=== PATIENT | female | born 1995 | race Caucasian/White ===

== ENCOUNTER 2017-12-04 11:33 | Emergency (ER) | payer OTHER ==
[~2017-12-04] VITALS: Ht 160 cm; Wt 62.0 kg
[2017-12-04 11:35] VITALS: BP 126/80; PULSE 76; RESP 14; TEMP 99; O2SAT 98
--- NOTE | 2017-12-04 12:22 | PD ---
HPI Chief Complaint: Head Injury Time Seen by Provider: 11:54 Travel History International Travel<30 days: No Contact w/Intl Traveler<30days: No Traveled to known affect area: No History of Present Illness HPI 22-year-old female that presents to the ED for evaluation of head injury on Monday. Per patient she fell on the lateral. She doesn't know what happened. She doesn't remember what happened during that time. Per patient he remembers what happened before and after. Unknown amount of LOC. Per patient this happened Monday. She's been doing well except yesterday she was very tired and for the most part slept through the day. She states that today she went to class and she noticed that she had blurry vision and she can barely see the letters on the screen. Per patient she has slight headache on the area which she hit her head. Denies any urinary or bowel movement issues. No chest pain or shortness of breath. No numbness, tingling, weakness. No blood thinner use. Other medical issues. No allergies to medication. Per patient the discomfort if anything is 3 out of 10. Otherwise she has no pain. PFSH Past Medical History Diminished Hearing: No Migraines: Yes Tetanus Vaccination: Unknown Influenza Vaccination: No ?: Not LMP: Approx. 1 month ago Social History Alcohol Use: Yes (occ) Tobacco Use: No Substance Use: No Allergies-Medications (Allergen,Severity, Reaction): Coded Allergies: No Known Allergies (Unverified , 08/20/15) Review of Systems Except as stated in HPI: all other systems reviewed are Neg Physical Exam Narrative GENERAL: SKIN: Warm and dry. HEAD: Atraumatic. Normocephalic. EYES: Pupils equal and round 4 mm reactive to light and accommodation. No scleral icterus. No injection or drainage. EOM intact bilaterally. Peripheral vision intact bilaterally. ENT: No nasal bleeding or discharge. Mucous membranes pink and moist. Tongue is midline. No uvula deviation. NECK: Trachea midline. No JVD. CARDIOVASCULAR: Regular rate and rhythm. No murmurs, S3, S4. RESPIRATORY: No accessory muscle use. Clear to auscultation. Breath sounds equal bilaterally. GASTROINTESTINAL: Abdomen soft, non-tender, nondistended. Hepatic and splenic margins not palpable. MUSCULOSKELETAL: Extremities without clubbing, cyanosis, or edema. No obvious deformities. Full range of motion of the upper and lower extremities bilaterally. 2+ pulses bilaterally. NEUROLOGICAL: Awake and alert. No obvious cranial nerve deficits. Motor grossly within normal limits. Five out of 5 muscle strength in the arms and legs. Normal speech. PSYCHIATRIC: Appropriate mood and affect; insight and judgment normal. Data Data Last Documented VS Vital Signs Date Time Temp Pulse Resp B/P (MAP) Pulse Ox O2 Delivery O2 Flow Rate FiO2 12/04/17 11:35 99.0 76 14 126/80 (95) [address] Brain W/O Iv Contrast(Rout) (12/04/17 ) MDM Medical Decision Making Medical Screen Exam Complete: Yes Emergency Medical Condition: Yes Medical Record Reviewed: Yes Interpretation(s) CT of the head was negative for acute disease. Differential Diagnosis Head injury versus concussion versus postconcussion syndrome versus ICH Narrative Course 22-year-old female that presents to the ED for evaluation of head injury and blurred vision. Patient was properly examined and was found to have signs and symptoms which appear to be very consistent with concussion syndrome. Patient her vascular intact. Blurry vision only with screens as well as with looking at board in school. Patient has slight headache and she does this. She is neurovascularly intact otherwise. No pain otherwise. No blood thinner use. CT was ordered Unasyn of ICH. CT was negative for this. Patient was reassured. This time I think patient is likely concussion. She was told to do rest. Given a note for school. Tylenol for pain. Follow with PCP. See ED worsening symptoms. Diagnosis Primary Impression: Concussion Qualified Codes: S06.0X1A - Concussion with loss of consciousness of 30 minutes or less, initial encounter Patient Instructions: General Instructions Departure Forms: School Release, Return to School Date: Dec 07, 2017 Tests/Procedures Additional Instructions: Tylenol or Motrin for pain. Rest. Follow with PCP. See ED worsening symptoms. He will likely take some days to a couple of weeks for the symptoms to improve. Med/Other Pt SpecificInfo: No Change to Meds Disposition: 01 DISCHARGE HOME Condition: Stable Caleb Garcia Dec 04, 2017 12:22
--- NOTE | 2017-12-04 12:52 | RADRPT ---
EXAM DATE/TIME: 12/04/2017 12:42 [facility] COMPARISON: No previous studies available for comparison. INDICATIONS : Hit head three days ago. Pain. RADIATION DOSE: 55.06 CTDIvol (mGy) MEDICAL HISTORY : None SURGICAL HISTORY : None. ENCOUNTER: Initial ACUITY: 3 days PAIN SCALE: 4/10 LOCATION: Right frontal TECHNIQUE: Multiple contiguous axial images were obtained of the head. Using automated exposure control and adj ustment of the mA and/or kV according to patient size, radiation dose was kept as low as reasonably a chievable to obtain optimal diagnostic quality images. DICOM format image data is available electro nically for review and comparison. FINDINGS: CEREBRUM: The ventricles are normal for age. No evidence of midline shift, mass lesion, hemorrhage or acute in farction. No extra-axial fluid collections are seen. POSTERIOR FOSSA: The cerebellum and brainstem are intact. The 4th ventricle is midline. The cerebellopontine angle i s unremarkable. EXTRACRANIAL: The visualized portion of the orbits is intact. SKULL: The calvaria is intact. No evidence of skull fracture. CONCLUSION: Negative for acute process. Adam Thomason MD FACR on December 04, 2017 at 12:50 Board Certified Radiologist. This report was verified electronically.
== END 2017-12-04 13:18 | disposition home or self-care (01) ==
LOC: PHEFT 11:33
DX: S06.0X1A Concussion with loss of consciousness of 30 minutes or less, initial encounter (principal); W19.XXXA Unspecified fall, initial encounter
CPT/HCPCS: 70450; 99283